=== PATIENT | female | born 1970 | race Hispanic/Latino ===

== ENCOUNTER → 2018-02-11 | Outpatient (CLI) | payer BC, OTHER | END | disposition home or self-care (01) | LOC: RAH 08:07 | PROVIDERS: ATTEND Internal Medicine | DX: E04.2 Nontoxic multinodular goiter (principal); K76.0 Fatty (change of) liver, not elsewhere classified; Z90.49 Acquired absence of other specified parts of digestive tract | CPT/HCPCS: 76536; 76700 ==

== ENCOUNTER → 2018-08-02 | Outpatient (CLI) | payer OTHER, BC | END | disposition home or self-care (01) | LOC: OIH 11:17 | PROVIDERS: ATTEND Internal Medicine | DX: J40 Bronchitis, not specified as acute or chronic (principal); J30.89 Other allergic rhinitis | CPT/HCPCS: 71046 ==

== ENCOUNTER → 2018-08-12 | Outpatient (CLI) | payer OTHER | END | disposition home or self-care (01) | LOC: RAH 10:53 | PROVIDERS: ATTEND Obstetrics & Gynecology | DX: R92.8 Other abnormal and inconclusive findings on diagnostic imaging of breast (principal) | CPT/HCPCS: 77066 ==

== ENCOUNTER → 2018-11-25 | Outpatient (CLI) | payer OTHER ==
[2018-11-25 17:36] LABS: HEMATOCRIT 41.4 % (36-48); MEAN CORPUSCULAR HEMOGLOBIN 30.6 pg (27.0-33.0); MEAN CORPUSCULAR HGB CONC 33.2 g/dL (32.0-36.0); MEAN CORPUSCULAR VOLUME 92.2 fL (79-99); NUCLEATED RED BLOOD CELLS 0.1 % (0.0-0.19); PLATELET COUNT (AUTO) 328 K/uL (130-400); RED BLOOD CELL COUNT(AUTO) 4.49 MIL/uL (4.00-5.50); RED CELL DISTRIBUTION WIDTH 12.6 % (11.0-15.5); WHITE BLOOD COUNT (AUTO) 11.9 K/uL (4.8-10.8)
[2018-11-25 17:49] LABS: ALBUMIN 3.8 g/dL (3.5-5.0); CREATININE 0.9 mg/dL (0.5-1.5); CRP QUANTITATIVE 9.6 mg/L (0.00-9.0); PHOSPHORUS 4.9 mg/dL (2.5-4.9); POTASSIUM 3.8 mmol/L (3.5-5.1)
[2018-11-25 18:58] LABS: ERYTHROCYTE SEDIMENTATION RATE 11 MM/HR (0-30)
[2018-11-25 20:01] LABS: BAND NEUTROPHILS % (MANUAL) 1 % (0-2); LYMPHOCYTES % (MANUAL) 18 % (22-44); MAN.DIFF COMMENT-IMPRESSION MANUAL DIFFERENTIAL; MONOCYTES % (MANUAL) 2 % (2-9); REACTIVE LYMPHOCYTES 1 % (0-0); SEGMENTED NEUTROPHILS % 78 % (40-70)
[2018-11-25 20:02] LABS: PLATELET MORPHOLOGY COMMENT ADEQUATE
[2018-11-29 14:12] LABS: ALPHA-1-ANTITRYPSIN 127 mg/dL (90-200)
== END | disposition home or self-care (01) ==
LOC: LAB 16:40
PROVIDERS: ATTEND Internal Medicine
DX: J45.909 Unspecified asthma, uncomplicated (principal); J30.89 Other allergic rhinitis; J40 Bronchitis, not specified as acute or chronic; R05 Cough; R06.02 Shortness of breath
CPT/HCPCS: 36415; 80069; 82103; 82104; 83520; 85025; 85651; 86038; 86140; 86215; 86235; 86255; 86606; 86612; 86635; 86698

== ENCOUNTER → 2018-11-29 | Outpatient (CLI) | payer OTHER ==
[~2018-11-29] MED LIST: IOHEXOL-350 50ML VIAL IV ONE
== END | disposition home or self-care (01) ==
LOC: RAH 13:22
PROVIDERS: ATTEND Internal Medicine
DX: J40 Bronchitis, not specified as acute or chronic (principal); K76.0 Fatty (change of) liver, not elsewhere classified
CPT/HCPCS: 71260; Q9967

== ENCOUNTER → 2018-12-21 | Outpatient (CLI) | payer OTHER ==
[2018-12-21 17:22] LABS: ALBUMIN 3.9 g/dL (3.5-5.0); BILIRUBIN,DIRECT 0.1 mg/dL (0.0-0.3); BILIRUBIN,TOTAL 0.2 mg/dL (0.2-1.0); TOTAL PROTEIN, SERUM 7.5 g/dL (6.0-8.3)
== END | disposition home or self-care (01) ==
LOC: LAB 16:06
PROVIDERS: ATTEND Internal Medicine
DX: J45.909 Unspecified asthma, uncomplicated (principal)
CPT/HCPCS: 36415; 80076

== ENCOUNTER → 2019-01-26 | Outpatient (CLI) | payer OTHER ==
[2019-01-26 13:44] LABS: BASOPHILS % (AUTO) 0.5 % (0.0-5.0); HEMATOCRIT 40.6 % (36-48); LYMPHOCYTES % (AUTO) 32.3 % (21.0-51.0); MEAN CORPUSCULAR HEMOGLOBIN 31.2 pg (27.0-33.0); MEAN CORPUSCULAR HGB CONC 34.2 g/dL (32.0-36.0); MEAN CORPUSCULAR VOLUME 91.2 fL (79-99); MONOCYTES % (AUTO) 5.1 % (3.0-13.0); NEUTROPHILS % (AUTO) 57.1 % (40.0-77.0); NUCLEATED RED BLOOD CELLS 0.1 % (0.0-0.19); PLATELET COUNT (AUTO) 337 K/uL (130-400); RED BLOOD CELL COUNT(AUTO) 4.45 MIL/uL (4.00-5.50); RED CELL DISTRIBUTION WIDTH 12.6 % (11.0-15.5); WHITE BLOOD COUNT (AUTO) 6.5 K/uL (4.8-10.8)
== END | disposition home or self-care (01) ==
LOC: LAB 13:11
PROVIDERS: ATTEND Internal Medicine Critical Care Medicine
DX: J45.50 Severe persistent asthma, uncomplicated (principal)
CPT/HCPCS: 36415; 82785; 85025

== ENCOUNTER → 2019-02-01 | Outpatient (CLI) | payer OTHER ==
[~2019-02-01] MED LIST changes: -IOHEXOL-350 50ML VIAL IV ONE; +IPRATROPIUM/ALBUTEROL SULFATE 3 ML SOLUTION IH ONE
== END | disposition home or self-care (01) ==
LOC: RAH 01-31 12:18
PROVIDERS: ATTEND Internal Medicine Cardiovascular Disease
DX: R06.02 Shortness of breath (principal)
CPT/HCPCS: 93306

== ENCOUNTER 2019-02-03 16:20 | Observation (INO) | payer OTHER ==
[~2019-02-03] VITALS: Ht 165.1 cm; Wt 67.9 kg
[2019-02-03] MEDS ORDERED: LEVOFLOXACIN 500 MG/D5W 100 ML 100 ML ONE (16:42)
[2019-02-03] MEDS ORDERED: METHYLPREDNISOLONE SOD SUCC 125MG/2ML VIAL ONE (16:42)
[2019-02-03] MEDS ORDERED: SODIUM CHLORIDE 0.9% 1000ML 1,000 ML IV ONE (16:42)
[2019-02-03 16:47] LABS: BASOPHILS % (AUTO) 0.9 % (0.0-5.0); EOSINOPHILS % (AUTO) 8.2 % (0.0-8.0); HEMATOCRIT 41.5 % (36-48); LYMPHOCYTES % (AUTO) 24.8 % (21.0-51.0); MEAN CORPUSCULAR HEMOGLOBIN 30.5 pg (27.0-33.0); MEAN CORPUSCULAR HGB CONC 33.7 g/dL (32.0-36.0); MEAN CORPUSCULAR VOLUME 90.5 fL (79-99); MONOCYTES % (AUTO) 7.2 % (3.0-13.0); NEUTROPHILS % (AUTO) 58.9 % (40.0-77.0); PLATELET COUNT (AUTO) 310 K/uL (130-400); RED BLOOD CELL COUNT(AUTO) 4.58 MIL/uL (4.00-5.50); RED CELL DISTRIBUTION WIDTH 13.1 % (11.0-15.5); WHITE BLOOD COUNT (AUTO) 6.6 K/uL (4.8-10.8)
[2019-02-03] MEDS ORDERED: IPRATROPIUM/ALBUTEROL SULFATE 3 ML SOLUTION IH ONE ×2 (16:48→19:54)
[2019-02-03 16:58] LABS: CREATININE 0.8 mg/dL (0.5-1.5); POTASSIUM 3.6 mmol/L (3.5-5.1)
[2019-02-03 17:00] LABS: INR 0.95 (0.85-1.15); PARTIAL THROMBOPLASTIN TIME 27.1 SEC (26.3-35.5)
[2019-02-03 17:02] LABS: ALBUMIN 3.9 g/dL (3.5-5.0); BILIRUBIN,DIRECT 0.1 mg/dL (0.0-0.3); BILIRUBIN,TOTAL 0.3 mg/dL (0.2-1.0); TOTAL PROTEIN, SERUM 7.5 g/dL (6.0-8.3)
[2019-02-03 17:31] LABS: B-TYPE NATRIURETIC PEPTIDE < 5 pg/mL (0-100)
[2019-02-03] MEDS ORDERED: GUAIFENESIN-CODEINE 5 ML SYRUP ONE ×2 (17:38→17:41)
[2019-02-03] MEDS ORDERED: MORPHINE SULFATE 4 MG/1ML SYG ONE (18:04)
[2019-02-03] MEDS ORDERED: ACETAMINOPHEN 325 MG TAB PO PRN (19:45)
[2019-02-03] MEDS ORDERED: OXYMETAZOLINE HCL SPRAY 15 ML BOTTLE EN PRN (19:45)
[2019-02-03] MEDS ORDERED: ONDANSETRON HCL 4 MG/2 ML VIAL IV PRN (19:45)
[2019-02-03] MEDS ORDERED: NITROGLYCERIN 0.4 MG SL TAB SL PRN (19:45)
[2019-02-03] MEDS ORDERED: SODIUM CHLORIDE 3% FOR INHALATION 4 ML/AMP VIAL.NEB IH ONE (20:13)
--- NOTE | 2019-02-03 20:25 | NUR ---
REPORT RECEIVED FROM GILDA MOTA
--- NOTE | 2019-02-03 20:50 | NUR ---
PT ARRIVED TO UNIT. PT IS ACCOMPANIED BY . STABLE. MINIMAL SOB DUE TO INCREASED COUGHING. STATES NO SECRETIONS. DOES HAS LARGE AMOUNT OF NASAL DRAINAGE. HAS NOT BEEN ABLE TO SLEEP DUE TO COUGH AND SECRETIONS. HAS BEEN SICK FOR ROUGHLY SEVEN MONTHS. HAS SEEN TWO [facility]. HAD EPISODE OF SOB WHILE AT WORK AND WENT TO THE ER. PT AA03. EVGENY. LAST BM 02/03. NO DISTRESS NOTED. AMBULATORY. IV PATENT.
[2019-02-03 20:52] VITALS: BP 129/83
[2019-02-03] MEDS ORDERED: FAMOTIDINE 20MG TAB 20 MG TAB PO SCH (21:00)
--- NOTE | 2019-02-03 21:00 | NUR ---
FRANNIE MELENDEZ IN TO SEE PT FOR HOSPITALIST SERVICES. NEW ORDER FOR BENADRYL 25MG PO X1DOSE TO AIDE IN SLEEPING. PT STATES SHE HAS BEEN UNABLE TO SLEEP WELL FOR WEEKS DUE TO CONDITION.
[2019-02-03] MEDS: SODIUM CHLORIDE 0.9% 1000ML 1,000 ML IV SCH (21:11)
[2019-02-03] MEDS: CLINDAMYCIN 600 MG/D5% WATER 50 ML IV SCH ×2 (21:12→21:36)
[2019-02-03] MEDS: METHYLPREDNISOLONE SOD SUCC 40MG/ML 1ML IVP SCH (21:21)
[2019-02-03] MEDS ORDERED: DIPHENHYDRAMINE HCL 25 MG CAPSULE PO SCH (21:30)
[2019-02-03 21:32] LABS: ALBUMIN 3.8 g/dL (3.5-5.0); BASOPHILS % (AUTO) 0.2 % (0.0-5.0); BILIRUBIN,TOTAL 0.4 mg/dL (0.2-1.0); CREATININE 0.7 mg/dL (0.5-1.5); EOSINOPHILS % (AUTO) 0.6 % (0.0-8.0); HEMATOCRIT 40.9 % (36-48); MEAN CORPUSCULAR HEMOGLOBIN 30.3 pg (27.0-33.0); MEAN CORPUSCULAR HGB CONC 33.6 g/dL (32.0-36.0); MEAN CORPUSCULAR VOLUME 90.1 fL (79-99); NEUTROPHILS % (AUTO) 87.2 % (40.0-77.0); PLATELET COUNT (AUTO) 306 K/uL (130-400); POTASSIUM 3.7 mmol/L (3.5-5.1); RED BLOOD CELL COUNT(AUTO) 4.53 MIL/uL (4.00-5.50); RED CELL DISTRIBUTION WIDTH 12.7 % (11.0-15.5); TOTAL PROTEIN, SERUM 7.5 g/dL (6.0-8.3); WHITE BLOOD COUNT (AUTO) 7.4 K/uL (4.8-10.8)
[2019-02-03] MEDS ORDERED: DIPHENHYDRAMINE HCL 25 MG CAPSULE ONE (21:33)
[2019-02-03] MEDS: IPRATROPIUM/ALBUTEROL SULFATE 3 ML SOLUTION IH SCH (21:58)
[2019-02-03] MEDS: ACETAMINOPHEN 325 MG TAB PO PRN (21:58)
[2019-02-03] MEDS: GUAIFENESIN-DM 200/20 MG 10 ML PO PRN (22:44)
[2019-02-03 23:35] VITALS: BP 115/70
[2019-02-04] MEDS: IPRATROPIUM/ALBUTEROL SULFATE 3 ML SOLUTION IH SCH ×3 (01:32→10:20)
[2019-02-04 04:26] VITALS: BP 101/68
[2019-02-04] MEDS: SODIUM CHLORIDE 0.9% 1000ML 1,000 ML IV SCH (05:41)
[2019-02-04] MEDS: METHYLPREDNISOLONE SOD SUCC 40MG/ML 1ML IVP SCH (06:05)
[2019-02-04] MEDS: GUAIFENESIN-DM 200/20 MG 10 ML PO PRN (06:23)
[2019-02-04 07:59] VITALS: BP 111/75
[2019-02-04 08:19] LABS: BASOPHILS % (AUTO) 0.2 % (0.0-5.0); EOSINOPHILS % (AUTO) 0.1 % (0.0-8.0); HEMATOCRIT 39.9 % (36-48); LYMPHOCYTES % (AUTO) 9.4 % (21.0-51.0); MEAN CORPUSCULAR HEMOGLOBIN 30.4 pg (27.0-33.0); MEAN CORPUSCULAR HGB CONC 33.4 g/dL (32.0-36.0); MEAN CORPUSCULAR VOLUME 91.1 fL (79-99); MONOCYTES % (AUTO) 1.3 % (3.0-13.0); PLATELET COUNT (AUTO) 291 K/uL (130-400); RED BLOOD CELL COUNT(AUTO) 4.38 MIL/uL (4.00-5.50)
[2019-02-04 08:31] LABS: ALBUMIN 3.7 g/dL (3.5-5.0); BILIRUBIN,TOTAL 0.2 mg/dL (0.2-1.0); CREATININE 0.9 mg/dL (0.5-1.5); POTASSIUM 4.2 mmol/L (3.5-5.1); TOTAL PROTEIN, SERUM 7.4 g/dL (6.0-8.3)
[2019-02-04] MEDS ORDERED: ENOXAPARIN SODIUM 30 MG/0.3 ML SQ SCH (09:00)
[2019-02-04] MEDS: ACETAMINOPHEN 325 MG TAB PO PRN (09:47)
[2019-02-04] MEDS ORDERED: FLUTICASONE PROPIONATE 50MCG/SPRAY 16 GM BOTTLE EN SCH (10:00)
[2019-02-04] MEDS ORDERED: Fluticasone Propionate EN (11:17)
[2019-02-04] MEDS ORDERED: PRED20TA3 PO (11:17)
[2019-02-04] MEDS ORDERED: LEVO750T46 PO (11:17)
[2019-02-04] MEDS ORDERED: LEVOFLOXACIN 500 MG/D5W 100 ML 100 ML IV SCH (16:00)
== END 2019-02-04 13:24 | disposition home or self-care (01) ==
LOC: EDH 16:20 → EDHIP 19:20 → INTOOBSV 19:20 → 2AH 20:45
PROVIDERS: ADMIT Internal Medicine; ATTEND Internal Medicine
DX: J01.40 Acute pansinusitis, unspecified (principal); Z80.6 Family history of leukemia; Z98.82 Breast implant status; Z82.5 Family history of asthma and other chronic lower respiratory diseases; Z79.899 Other long term (current) drug therapy; Z79.01 Long term (current) use of anticoagulants; Z90.49 Acquired absence of other specified parts of digestive tract
CPT/HCPCS: 36415 ×2; 70486; 71045; 80053 ×2; 82550; 83880; 84484; 85025 ×3; 85378; 85610; 85730; 87040 ×4; 87071; 87205; 87486; 87581; 87633; 87798; 87804 ×2; 93005; 94640 ×7; 94664; 96365; 96366; 96375; 96376; 99284; G0378 ×17; J1956; J2270; J2920 ×2; J2930; J3490; J7030 ×2; Q0163; 80048; 80076

== ENCOUNTER → 2019-02-11 | Outpatient (CLI) | payer OTHER ==
[~2019-02-11] MED LIST changes: +BUPR-47 PO; +Fluticasone Propionate EN; -IPRATROPIUM/ALBUTEROL SULFATE 3 ML SOLUTION IH ONE; +LEVO750T46 PO; +PRED20TA3 PO; +TIOT18CA3 IH
== END | disposition home or self-care (01) ==
LOC: RAH 09:06
PROVIDERS: ATTEND Internal Medicine
DX: J90 Pleural effusion, not elsewhere classified (principal); S22.32XD Fracture of one rib, left side, subsequent encounter for fracture with routine healing
CPT/HCPCS: 71046; 71100

== ENCOUNTER 2019-03-15 06:31 | Day surgery (SDC) | payer OTHER ==
[2019-03-14 09:36] VITALS: BP 129/94
[2019-03-14 09:38] LABS: BASOPHILS % (AUTO) 0.5 % (0.0-5.0); EOSINOPHILS % (AUTO) 2.4 % (0.0-8.0); HEMATOCRIT 43.8 % (36-48); LYMPHOCYTES % (AUTO) 34.7 % (21.0-51.0); MEAN CORPUSCULAR HEMOGLOBIN 30.5 pg (27.0-33.0); MEAN CORPUSCULAR HGB CONC 33.5 g/dL (32.0-36.0); MEAN CORPUSCULAR VOLUME 91.1 fL (79-99); MONOCYTES % (AUTO) 5.5 % (3.0-13.0); NEUTROPHILS % (AUTO) 56.9 % (40.0-77.0); PLATELET COUNT (AUTO) 327 K/uL (130-400); RED BLOOD CELL COUNT(AUTO) 4.81 MIL/uL (4.00-5.50); RED CELL DISTRIBUTION WIDTH 13.1 % (11.0-15.5); WHITE BLOOD COUNT (AUTO) 7.8 K/uL (4.8-10.8)
[2019-03-14 09:51] LABS: INR 0.96 (0.85-1.15); PARTIAL THROMBOPLASTIN TIME 27.1 SEC (26.3-35.5); PROTHROMBIN TIME 10.1 SEC (9.6-11.6)
[2019-03-14 11:31] LABS: CREATININE 0.8 mg/dL (0.5-1.5); POTASSIUM 4.1 mmol/L (3.5-5.1)
[2019-03-15] VITALS (15 sets, daily range): BP systolic 122–158; BP diastolic 75–100
[~2019-03-15] VITALS: Ht 165.1 cm; Wt 66.4 kg
[~2019-03-15 06:31] MED LIST changes: -Fluticasone Propionate EN; -LEVO750T46 PO; -PRED20TA3 PO
[2019-03-15] MEDS ORDERED: LACTATED RINGERS 1000ML 1,000 ML IV ONE (06:49)
[2019-03-15] MEDS ORDERED: LIDOCAINE PF 2% 5ML ABBOJECT ONE (06:52)
[2019-03-15] MEDS ORDERED: MIDAZOLAM HCL 1 MG/ML 2ML VIAL ONE (06:52)
[2019-03-15] MEDS ORDERED: DEXAMETHASONE SOD PHOSPHATE 10MG/ML 1ML VIAL ONE (06:52)
[2019-03-15] MEDS ORDERED: ONDANSETRON HCL 4 MG/2 ML VIAL ONE ×2 (06:52→07:15)
[2019-03-15] MEDS ORDERED: PROPOFOL 10 MG/ML 20ML VIAL IV ONE ×2 (06:52→08:45)
[2019-03-15] MEDS ORDERED: GLYCOPYRROLATE 1 MG/5 ML SYRINGE ONE (06:52)
[2019-03-15] MEDS ORDERED: SUCCINYLCHOLINE 200MG/10ML SYR ONE (06:52)
[2019-03-15] MEDS ORDERED: FENTANYL CITRATE PF 50 MCG/1 ML 2ML VIAL ONE ×2 (06:53→08:17)
[2019-03-15] MEDS ORDERED: ROCURONIUM 10MG/1ML SYR 10 MG/ML ML ONE (06:53)
[2019-03-15] MEDS ORDERED: NEOSTIGMINE 5MG/5ML SYR IV ONE (06:53)
[2019-03-15] MEDS ORDERED: BACITRACIN 28.4 GM OINT TP ONE (06:57)
[2019-03-15] MEDS ORDERED: EPINEPHRINE 1 MG/ML 30ML VIAL IJ ONE (06:58)
[2019-03-15] MEDS ORDERED: LIDOCAINE 1%-EPI 1:100,000 20 ML VIAL IJ ONE (06:58)
[2019-03-15] MEDS ORDERED: OXYMETAZOLINE HCL SPRAY 15 ML BOTTLE ONE (07:23)
[2019-03-15] MEDS ORDERED: METHYLPREDNISOLONE SOD SUCC 40MG/ML 1ML ONE ×2 (07:55→07:58)
[2019-03-15] MEDS ORDERED: MEPERIDINE-PF 25 MG/ML SYG ONE ×2 (09:11→09:29)
--- NOTE | 2019-03-15 10:10 | NUR ---
Pt arrived from PACU, report provided from [facility] via phone prior to pt's arrival. Upon pt's arrival to day pt, dressing changed. Nose draining moderate amounts of bright red blood. Dressing changed, 2 puffs of Afrin nasal spray applied into each nostril. Pt reported having a dry, uncomfortable throat. Pt provided with water and mouth swabs for relief.
[2019-03-15] MEDS ORDERED: ACETAMINOPHEN-CODEINE 300/30MG TAB ONE (10:28)
--- NOTE | 2019-03-15 11:20 | NUR ---
Pt discharged home, tolerating small amounts of clear fluids, moving around well with stand-by assistance. Denies any severe pain, nausea or dizziness. Discharge instructions provided, pt and spouse verbalized understanding. Pt reminded to watch for signs of excessive bleeding and if bleeding increases to call MD. Pt and family report no further questions at this time. Pt provided with tape and gauze to replace dressing around nose. PT sent home with Afrin for home use. Pt reports already having pain medication (Tylenol with codeine) filled. Dressing to nose replaced just prior to discharge.
== END 2019-03-15 11:20 | disposition home or self-care (01) ==
LOC: DAH 06:31
PROVIDERS: ATTEND Otolaryngology Plastic Surgery within the Head & Neck
DX: J34.2 Deviated nasal septum (principal); J34.3 Hypertrophy of nasal turbinates; J32.4 Chronic pansinusitis; J34.89 Other specified disorders of nose and nasal sinuses; R05 Cough; Z79.899 Other long term (current) drug therapy; Z82.5 Family history of asthma and other chronic lower respiratory diseases
CPT/HCPCS: 36415; 80048; 85025; 85610; 85730; 87070; 87076; 87205; 88304; 88305; 88311; J0171; J0330; J1100; J2001; J2175; J2250; J2405; J2704; J2710; J2920; J3010; J3490; J7120

== ENCOUNTER → 2019-05-06 | Outpatient (CLI) | payer OTHER | END | disposition home or self-care (01) | LOC: LAB 16:25 | PROVIDERS: ATTEND Otolaryngology Plastic Surgery within the Head & Neck | DX: R05 Cough (principal) | CPT/HCPCS: 36415; 82565; 84520 ==

== ENCOUNTER → 2019-05-11 | Outpatient (CLI) | payer OTHER ==
[~2019-05-11] MED LIST changes: +IOHEXOL-350 50ML VIAL IV ONE
== END | disposition home or self-care (01) ==
LOC: RAH 14:49
PROVIDERS: ATTEND Otolaryngology Plastic Surgery within the Head & Neck
DX: R91.8 Other nonspecific abnormal finding of lung field (principal)
CPT/HCPCS: 71046; 71270; Q9967

== ENCOUNTER → 2019-06-06 | Outpatient (CLI) | payer OTHER ==
[~2019-06-06] MED LIST changes: -IOHEXOL-350 50ML VIAL IV ONE
== END | disposition home or self-care (01) ==
LOC: LAB 16:26
PROVIDERS: ATTEND Internal Medicine Critical Care Medicine
DX: J45.50 Severe persistent asthma, uncomplicated (principal)
CPT/HCPCS: 36415; 82784

== ENCOUNTER 2019-06-08 14:03 | Emergency (ER) | payer OTHER ==
[~2019-06-08] VITALS: Ht 160 cm; Wt 63.5 kg
[2019-06-08] MEDS ORDERED: IPRATROPIUM/ALBUTEROL SULFATE 3 ML SOLUTION IH ONE ×2 (14:24→15:50)
[2019-06-08] MEDS ORDERED: METHYLPREDNISOLONE SOD SUCC 125MG/2ML VIAL ONE (14:33)
[2019-06-08 14:41] LABS: BASOPHILS % (AUTO) 0.6 % (0.0-5.0); EOSINOPHILS % (AUTO) 0.2 % (0.0-8.0); HEMATOCRIT 43.6 % (36-48); MEAN CORPUSCULAR HEMOGLOBIN 30.4 pg (27.0-33.0); MEAN CORPUSCULAR HGB CONC 34.7 g/dL (32.0-36.0); MEAN CORPUSCULAR VOLUME 87.7 fL (79-99); MONOCYTES % (AUTO) 4.3 % (3.0-13.0); NEUTROPHILS % (AUTO) 70.9 % (40.0-77.0); NUCLEATED RED BLOOD CELLS 0.1 % (0.0-0.19); PLATELET COUNT (AUTO) 369 K/uL (130-400); RED BLOOD CELL COUNT(AUTO) 4.97 MIL/uL (4.00-5.50); RED CELL DISTRIBUTION WIDTH 13.5 % (11.0-15.5); WHITE BLOOD COUNT (AUTO) 9.4 K/uL (4.8-10.8)
[2019-06-08 14:52] LABS: CREATININE 0.9 mg/dL (0.5-1.5)
[2019-06-08 14:58] LABS: ALBUMIN 3.9 g/dL (3.5-5.0); BILIRUBIN,TOTAL 0.3 mg/dL (0.2-1.0); TOTAL PROTEIN, SERUM 7.9 g/dL (6.0-8.3)
[2019-06-08] MEDS ORDERED: TERBUTALINE SULFATE VIAL 1MG/ML SQ SCH (16:45)
== END 2019-06-08 17:21 | disposition home or self-care (01) ==
LOC: EDH 14:03
DX: J45.901 Unspecified asthma with (acute) exacerbation (principal); Z90.49 Acquired absence of other specified parts of digestive tract; Z98.890 Other specified postprocedural states; Z87.891 Personal history of nicotine dependence; Z79.899 Other long term (current) drug therapy
CPT/HCPCS: 36415; 71045; 80053; 82550; 83880; 84484; 85025; 93005; 94640 ×2; 96372; 96374; 99285; J2930; J3105

== ENCOUNTER → 2019-07-29 | Outpatient (CLI) | payer OTHER ==
[2019-07-29 09:19] LABS: BASOPHILS % (AUTO) 0.5 % (0.0-5.0); EOSINOPHILS % (AUTO) 0.4 % (0.0-8.0); HEMATOCRIT 39.1 % (36-48); LYMPHOCYTES % (AUTO) 23.8 % (21.0-51.0); MEAN CORPUSCULAR HEMOGLOBIN 30.4 pg (27.0-33.0); MEAN CORPUSCULAR HGB CONC 33.5 g/dL (32.0-36.0); MEAN CORPUSCULAR VOLUME 90.8 fL (79-99); MONOCYTES % (AUTO) 7.3 % (3.0-13.0); NUCLEATED RED BLOOD CELLS 0.1 % (0.0-0.19); PLATELET COUNT (AUTO) 389 K/uL (130-400); RED BLOOD CELL COUNT(AUTO) 4.31 MIL/uL (4.00-5.50); RED CELL DISTRIBUTION WIDTH 14.1 % (11.0-15.5); WHITE BLOOD COUNT (AUTO) 10.5 K/uL (4.8-10.8)
[2019-07-29 09:28] LABS: HEMOGLOBIN A1C 5.8 % (4.0-6.0)
[2019-07-29 09:50] LABS: ALBUMIN 3.8 g/dL (3.5-5.0); BILIRUBIN,TOTAL 0.5 mg/dL (0.2-1.0); CREATININE 0.9 mg/dL (0.5-1.5); POTASSIUM 4.2 mmol/L (3.5-5.1); THYROID STIMULATING HORMONE 0.81 uIU/mL (0.36-3.74); TOTAL PROTEIN, SERUM 7.8 g/dL (6.0-8.3)
== END | disposition home or self-care (01) ==
LOC: RAH 08:53
PROVIDERS: ATTEND Obstetrics & Gynecology
DX: Z12.31 Encounter for screening mammogram for malignant neoplasm of breast (principal); J32.8 Other chronic sinusitis; J30.9 Allergic rhinitis, unspecified; E55.9 Vitamin D deficiency, unspecified; Z98.890 Other specified postprocedural states
CPT/HCPCS: 36415; 70486; 77067; 80053; 80061; 83036; 84439; 84443; 84481; 85025

== ENCOUNTER 2019-08-15 05:49 | Day surgery (SDC) | payer OTHER ==
[~2019-08-15] VITALS: Ht 165.1 cm; Wt 63.5 kg
[2019-08-15] MEDS ORDERED: SODIUM CHLORIDE 0.9% 1000ML 1,000 ML IV ONE (06:25)
[2019-08-15] MEDS ORDERED: FLUT16H NASAL (06:51)
[2019-08-15] MEDS ORDERED: OMEP40CA13 PO (06:51)
[2019-08-15] MEDS ORDERED: ALBU90AE IH (06:51)
[2019-08-15] MEDS ORDERED: BUDE10.2 IH (06:51)
[2019-08-15] MEDS ORDERED: MIDAZOLAM HCL 1 MG/ML 2ML VIAL ONE (06:51)
[2019-08-15] MEDS ORDERED: LORA-575 PO (06:51)
[2019-08-15] MEDS ORDERED: PROPOFOL 10 MG/ML 20ML VIAL IV ONE ×2 (06:51→07:27)
[2019-08-15] MEDS ORDERED: GABA300S PO (06:51)
[2019-08-15] MEDS ORDERED: LIDOCAINE HCL 1% 20 ML VIAL ONE (06:51)
[2019-08-15] MEDS ORDERED: ATOR20TA65 PO (06:51)
[2019-08-15] MEDS ORDERED: PRED20TA3 PO (06:51)
[2019-08-15] MEDS ORDERED: MONT10TA24 PO (06:51)
[2019-08-15] MEDS ORDERED: FENTANYL CITRATE PF 50 MCG/1 ML 2ML VIAL ONE (06:53)
[2019-08-15 07:38] VITALS: BP 102/75
[2019-08-15 07:40] VITALS: BP 107/77
[2019-08-15 07:45] VITALS: BP 98/70
[2019-08-15 07:50] VITALS: BP 100/71
== END 2019-08-15 08:15 | disposition home or self-care (01) ==
LOC: ENDO 05:49 → DAH 05:49 → ENDO 08:15
PROVIDERS: ATTEND Internal Medicine Gastroenterology
DX: Z09 Encounter for follow-up examination after completed treatment for conditions other than malignant neoplasm (principal); K29.70 Gastritis, unspecified, without bleeding; E78.5 Hyperlipidemia, unspecified; J45.909 Unspecified asthma, uncomplicated; K21.9 Gastro-esophageal reflux disease without esophagitis; K31.89 Other diseases of stomach and duodenum; Z79.899 Other long term (current) drug therapy; Z90.49 Acquired absence of other specified parts of digestive tract
CPT/HCPCS: 43239; 45378; A4215; A4221; A4222; A4223; A4606; A4620; A4663; J2250; J2704 ×2; J3010; J7030

== ENCOUNTER → 2020-02-07 | Outpatient (CLI) | payer BC, OTHER | END | disposition home or self-care (01) | LOC: RAH 08:27 | PROVIDERS: ATTEND Internal Medicine Critical Care Medicine | DX: J32.4 Chronic pansinusitis (principal) ==

== ENCOUNTER → 2020-04-26 | Outpatient (CLI) | payer BC, OTHER ==
[~2020-04-26] MED LIST changes: +ALBU90AE IH; +ATOR20TA65 PO; +BUDE10.2 IH; +FLUT16H NASAL; +GABA300S PO; +LORA-575 PO; +MONT10TA26 PO; +OMEP40CA13 PO; +PRED20TA3 PO
== END | disposition home or self-care (01) ==
LOC: RAH 08:19
PROVIDERS: ATTEND Internal Medicine
DX: Z01.811 Encounter for preprocedural respiratory examination (principal); R05 Cough
CPT/HCPCS: 71046

== ENCOUNTER → 2020-05-02 | Outpatient (CLI) | payer BC, OTHER ==
[2020-05-02 14:03] LABS: BASOPHILS % (AUTO) 0.2 % (0.0-5.0); EOSINOPHILS % (AUTO) 3.6 % (0.0-8.0); HEMATOCRIT 40.8 % (36-48); LYMPHOCYTES % (AUTO) 41.6 % (21.0-51.0); MEAN CORPUSCULAR HEMOGLOBIN 30.6 pg (27.0-33.0); MEAN CORPUSCULAR HGB CONC 33.3 g/dL (32.0-36.0); MEAN CORPUSCULAR VOLUME 91.9 fL (79-99); MONOCYTES % (AUTO) 7.5 % (3.0-13.0); PLATELET COUNT (AUTO) 307 K/uL (130-400); RED BLOOD CELL COUNT(AUTO) 4.44 MIL/uL (4.00-5.50); RED CELL DISTRIBUTION WIDTH 12.8 % (11.0-15.5); WHITE BLOOD COUNT (AUTO) 8.4 K/uL (4.8-10.8)
[2020-05-02 14:22] LABS: ALBUMIN 3.6 g/dL (3.5-5.0); BILIRUBIN,DIRECT 0.1 mg/dL (0.0-0.3); BILIRUBIN,TOTAL 0.4 mg/dL (0.2-1.0); POTASSIUM 3.8 mmol/L (3.5-5.1); TOTAL PROTEIN, SERUM 7.1 g/dL (6.0-8.3)
[2020-05-02 14:23] LABS: INR 0.92 (0.85-1.15); PARTIAL THROMBOPLASTIN TIME 24.5 SEC (26.3-35.5)
== END | disposition home or self-care (01) ==
LOC: LAB 04-27 06:59
PROVIDERS: ATTEND Internal Medicine
DX: Z01.818 Encounter for other preprocedural examination (principal); E78.2 Mixed hyperlipidemia
CPT/HCPCS: 36415; 80053; 80076; 85025; 85610; 85730

== ENCOUNTER → 2020-05-07 | Outpatient (CLI) | payer BC, OTHER | END | disposition home or self-care (01) | LOC: RAH 09:13 | PROVIDERS: ATTEND Otolaryngology | DX: J32.4 Chronic pansinusitis (principal); J32.9 Chronic sinusitis, unspecified; J34.2 Deviated nasal septum | CPT/HCPCS: 70486 ==

== ENCOUNTER → 2020-08-01 | Outpatient (CLI) | payer BC, OTHER ==
[~2020-08-01] MED LIST changes: -MONT10TA26 PO; +MONT10TA96 PO
== END | disposition home or self-care (01) ==
LOC: RAH 08:21
PROVIDERS: ATTEND Internal Medicine
DX: Z12.31 Encounter for screening mammogram for malignant neoplasm of breast (principal); N64.89 Other specified disorders of breast
CPT/HCPCS: 77067

== ENCOUNTER → 2020-08-14 | Outpatient (CLI) | payer BC, OTHER | END | disposition home or self-care (01) | LOC: RAH 09:34 | PROVIDERS: ATTEND Internal Medicine | DX: J32.9 Chronic sinusitis, unspecified (principal); M47.814 Spondylosis without myelopathy or radiculopathy, thoracic region | CPT/HCPCS: 70486; 71046; 74021 ==

== ENCOUNTER → 2020-08-29 | Outpatient (CLI) | payer BC, OTHER ==
[2020-08-29 09:19] LABS: BASOPHILS % (AUTO) 0.8 % (0.0-5.0); HEMATOCRIT 45.4 % (36-48); LYMPHOCYTES % (AUTO) 43.5 % (21.0-51.0); MEAN CORPUSCULAR HEMOGLOBIN 29.2 pg (27.0-33.0); MEAN CORPUSCULAR HGB CONC 31.9 g/dL (32.0-36.0); MEAN CORPUSCULAR VOLUME 91.3 fL (79-99); MONOCYTES % (AUTO) 6.8 % (3.0-13.0); NEUTROPHILS % (AUTO) 42.6 % (40.0-77.0); PLATELET COUNT (AUTO) 428 K/uL (130-400); RED BLOOD CELL COUNT(AUTO) 4.97 MIL/uL (4.00-5.50); RED CELL DISTRIBUTION WIDTH 13.4 % (11.0-15.5); WHITE BLOOD COUNT (AUTO) 6.4 K/uL (4.8-10.8)
[2020-08-29 09:36] LABS: ALBUMIN 4.1 g/dL (3.5-5.0); BILIRUBIN,TOTAL 0.3 mg/dL (0.2-1.0); CREATININE 0.9 mg/dL (0.5-1.5); TOTAL PROTEIN, SERUM 8.5 g/dL (6.0-8.3)
[2020-08-29 10:34] LABS: ERYTHROCYTE SEDIMENTATION RATE 3 MM/HR (0-30)
== END | disposition home or self-care (01) ==
LOC: LAB 08:18
PROVIDERS: ATTEND Internal Medicine
DX: B44.9 Aspergillosis, unspecified (principal)
CPT/HCPCS: 36415; 80053; 80061; 82785; 85025; 85651; 86606

== ENCOUNTER → 2020-09-14 | Outpatient (CLI) | payer BC, OTHER ==
[~2020-09-14] MED LIST changes: -BUPR-47 PO; +BUPR-48 PO
[2020-09-14 10:22] LABS: BASOPHILS % (AUTO) 0.8 % (0.0-5.0); EOSINOPHILS % (AUTO) 10.5 % (0.0-8.0); HEMATOCRIT 43.6 % (36-48); LYMPHOCYTES % (AUTO) 35.6 % (21.0-51.0); MEAN CORPUSCULAR HEMOGLOBIN 28.5 pg (27.0-33.0); MEAN CORPUSCULAR HGB CONC 31.7 g/dL (32.0-36.0); MEAN CORPUSCULAR VOLUME 89.9 fL (79-99); MONOCYTES % (AUTO) 5.9 % (3.0-13.0); NEUTROPHILS % (AUTO) 46.8 % (40.0-77.0); PLATELET COUNT (AUTO) 363 K/uL (130-400); RED BLOOD CELL COUNT(AUTO) 4.85 MIL/uL (4.00-5.50); RED CELL DISTRIBUTION WIDTH 13.2 % (11.0-15.5); WHITE BLOOD COUNT (AUTO) 5.3 K/uL (4.8-10.8)
[2020-09-14 10:42] LABS: ALBUMIN 3.9 g/dL (3.5-5.0); BILIRUBIN,TOTAL 0.2 mg/dL (0.2-1.0); CREATININE 0.9 mg/dL (0.5-1.5); CRP QUANTITATIVE 4.1 mg/L (0.00-9.0); POTASSIUM 3.8 mmol/L (3.5-5.1); TOTAL PROTEIN, SERUM 7.8 g/dL (6.0-8.3)
[2020-09-14 11:26] LABS: ERYTHROCYTE SEDIMENTATION RATE 122 MM/HR (0-30)
== END | disposition home or self-care (01) ==
LOC: RAH 09:58
PROVIDERS: ATTEND Internal Medicine
DX: M19.042 Primary osteoarthritis, left hand (principal); M19.041 Primary osteoarthritis, right hand; M19.072 Primary osteoarthritis, left ankle and foot; M19.071 Primary osteoarthritis, right ankle and foot; M06.4 Inflammatory polyarthropathy
CPT/HCPCS: 73630

== ENCOUNTER → 2020-11-15 | Outpatient (CLI) | payer BC, OTHER ==
[~2020-11-15] MED LIST changes: -BUPR-48 PO; +BUPR-49 PO; +MONT10TA32 PO; -MONT10TA96 PO
== END | disposition home or self-care (01) ==
LOC: RAH 15:39
PROVIDERS: ATTEND Internal Medicine
DX: J32.4 Chronic pansinusitis (principal); J34.2 Deviated nasal septum
CPT/HCPCS: 70486

== ENCOUNTER → 2020-11-30 | Outpatient (CLI) | payer BC, OTHER ==
[2020-11-30 11:16] LABS: BASOPHILS % (AUTO) 0.7 % (0.0-5.0); EOSINOPHILS % (AUTO) 9.8 % (0.0-8.0); LYMPHOCYTES % (AUTO) 42.9 % (21.0-51.0); MEAN CORPUSCULAR HEMOGLOBIN 29.8 pg (27.0-33.0); MEAN CORPUSCULAR HGB CONC 33.3 g/dL (32.0-36.0); MEAN CORPUSCULAR VOLUME 89.5 fL (79-99); NEUTROPHILS % (AUTO) 36.5 % (40.0-77.0); PLATELET COUNT (AUTO) 381 K/uL (130-400); RED BLOOD CELL COUNT(AUTO) 5.03 MIL/uL (4.00-5.50); RED CELL DISTRIBUTION WIDTH 13.1 % (11.0-15.5); WHITE BLOOD COUNT (AUTO) 7.3 K/uL (4.8-10.8)
[2020-11-30 11:27] LABS: ALANINE AMINOTRANSFERASE 38 U/L (12-78); ALBUMIN 4.5 g/dL (3.5-5.0); ASPARTATE AMINOTRANSFERASE 18 U/L (10-37); BILIRUBIN,TOTAL 0.4 mg/dL (0.2-1.0); CARBON DIOXIDE 28 mmol/L (21-32); CHLORIDE 101 mmol/L (101-111); CREATININE 0.9 mg/dL (0.5-1.5); CRP QUANTITATIVE < 2.00 mg/L (0.00-9.0); GLOMERULAR FILTR. RATE CALC 70 mL/min (>60); GLUCOSE,RANDOM 102 mg/dL (70-105); POTASSIUM 3.9 mmol/L (3.5-5.1); SODIUM SERUM 138 mmol/L (136-145); TOTAL PROTEIN, SERUM 8.6 g/dL (6.0-8.3); UREA NITROGEN, BLOOD 15 mg/dL (7-18)
[2020-11-30 12:29] LABS: ERYTHROCYTE SEDIMENTATION RATE 8 MM/HR (0-30)
== END | disposition home or self-care (01) ==
LOC: LAB 11-29 11:35
PROVIDERS: ATTEND Internal Medicine
DX: M06.4 Inflammatory polyarthropathy (principal)
CPT/HCPCS: 36415; 80053; 85025; 85651; 86140; 86255

== ENCOUNTER → 2021-01-08 | Outpatient (CLI) | payer BC ==
[2021-01-08 09:39] LABS: BASOPHILS % (AUTO) 1.4 % (0.0-5.0); EOSINOPHILS % (AUTO) 18.9 % (0.0-8.0); HEMATOCRIT 40.2 % (36-48); LYMPHOCYTES % (AUTO) 34.6 % (21.0-51.0); MEAN CORPUSCULAR HEMOGLOBIN 29.5 pg (27.0-33.0); MEAN CORPUSCULAR HGB CONC 32.1 g/dL (32.0-36.0); MEAN CORPUSCULAR VOLUME 91.8 fL (79-99); MONOCYTES % (AUTO) 7.1 % (3.0-13.0); NEUTROPHILS % (AUTO) 37.8 % (40.0-77.0); PLATELET COUNT (AUTO) 338 K/uL (130-400); RED BLOOD CELL COUNT(AUTO) 4.38 MIL/uL (4.00-5.50); RED CELL DISTRIBUTION WIDTH 12.4 % (11.0-15.5); WHITE BLOOD COUNT (AUTO) 6.5 K/uL (4.8-10.8)
[2021-01-08 10:33] LABS: ALANINE AMINOTRANSFERASE 40 U/L (12-78); ASPARTATE AMINOTRANSFERASE 26 U/L (10-37); BILIRUBIN,TOTAL 0.3 mg/dL (0.2-1.0); CARBON DIOXIDE 28 mmol/L (21-32); CHLORIDE 103 mmol/L (101-111); CREATININE 0.9 mg/dL (0.5-1.5); GLOMERULAR FILTR. RATE CALC 70 mL/min (>60); GLUCOSE,RANDOM 101 mg/dL (70-105); POTASSIUM 4.5 mmol/L (3.5-5.1); SODIUM SERUM 141 mmol/L (136-145); TOTAL PROTEIN, SERUM 7.8 g/dL (6.0-8.3); UREA NITROGEN, BLOOD 19 mg/dL (7-18)
[2021-01-08 10:42] LABS: ERYTHROCYTE SEDIMENTATION RATE 11 MM/HR (0-30)
[2021-01-08 11:15] LABS: CRP QUANTITATIVE < 2.00 mg/L (0.00-9.0)
== END | disposition home or self-care (01) ==
LOC: LAB 09:28
PROVIDERS: ATTEND Internal Medicine
DX: M06.4 Inflammatory polyarthropathy (principal)
CPT/HCPCS: 36415; 80053; 85025; 85651; 86140

== ENCOUNTER → 2021-02-06 | Outpatient (CLI) | payer BC ==
[~2021-02-06] MED LIST changes: -OMEP40CA13 PO; +OMEP40CA21 PO
[2021-02-06 15:20] LABS: EOSINOPHILS % (AUTO) 27.3 % (0.0-8.0); HEMATOCRIT 40.1 % (36-48); MEAN CORPUSCULAR HEMOGLOBIN 29.7 pg (27.0-33.0); MEAN CORPUSCULAR HGB CONC 32.7 g/dL (32.0-36.0); MEAN CORPUSCULAR VOLUME 90.9 fL (79-99); MONOCYTES % (AUTO) 7.2 % (3.0-13.0); NEUTROPHILS % (AUTO) 32.3 % (40.0-77.0); PLATELET COUNT (AUTO) 292 K/uL (130-400); RED BLOOD CELL COUNT(AUTO) 4.41 MIL/uL (4.00-5.50); RED CELL DISTRIBUTION WIDTH 12.5 % (11.0-15.5); WHITE BLOOD COUNT (AUTO) 5.8 K/uL (4.8-10.8)
[2021-02-06 15:35] LABS: ALANINE AMINOTRANSFERASE 23 U/L (12-78); ALBUMIN 3.9 g/dL (3.5-5.0); ASPARTATE AMINOTRANSFERASE 13 U/L (10-37); BILIRUBIN,TOTAL 0.2 mg/dL (0.2-1.0); CARBON DIOXIDE 29 mmol/L (21-32); CHLORIDE 104 mmol/L (101-111); CREATININE 0.8 mg/dL (0.5-1.5); GLOMERULAR FILTR. RATE CALC 80 mL/min (>60); GLUCOSE,RANDOM 120 mg/dL (70-105); POTASSIUM 4.1 mmol/L (3.5-5.1); SODIUM SERUM 142 mmol/L (136-145); TOTAL PROTEIN, SERUM 7.6 g/dL (6.0-8.3); UREA NITROGEN, BLOOD 19 mg/dL (7-18)
[2021-02-06 15:36] LABS: CRP QUANTITATIVE < 2.00 mg/L (0.00-9.0)
[2021-02-06 16:31] LABS: ERYTHROCYTE SEDIMENTATION RATE 10 MM/HR (0-30)
[2021-02-08 14:11] LABS: HEPATITIS Bs ANTIGEN SCREEN P Negative (Negative)
== END | disposition home or self-care (01) ==
LOC: LAB 14:38
PROVIDERS: ATTEND Internal Medicine
DX: M06.4 Inflammatory polyarthropathy (principal)
CPT/HCPCS: 36415; 80053; 85025; 85651; 86140; 86704; 86706; 87340

== ENCOUNTER → 2021-03-13 | Outpatient (CLI) | payer BC | END | disposition home or self-care (01) | LOC: LAB 11:28 | PROVIDERS: ATTEND Internal Medicine Cardiovascular Disease | DX: Z20.822 Contact with and (suspected) exposure to COVID-19 (principal) | CPT/HCPCS: 87635; 87804 ×2; C9803 ==

== ENCOUNTER → 2021-06-17 | Outpatient (CLI) | payer BC, OTHER ==
[~2021-06-17] MED LIST changes: +MONT-39 PO; -MONT10TA32 PO
== END | disposition home or self-care (01) ==
LOC: RAH 13:03
PROVIDERS: ATTEND Otolaryngology Plastic Surgery within the Head & Neck
DX: J32.4 Chronic pansinusitis (principal); Z20.822 Contact with and (suspected) exposure to COVID-19
CPT/HCPCS: 70486; 87635; C9803

== ENCOUNTER → 2021-09-19 | Outpatient (CLI) | payer BC, OTHER | END | disposition home or self-care (01) | LOC: RAH 10:15 | PROVIDERS: ATTEND Internal Medicine | DX: Z12.31 Encounter for screening mammogram for malignant neoplasm of breast (principal); Z98.82 Breast implant status | CPT/HCPCS: 77067 ==

== ENCOUNTER → 2021-10-01 | Outpatient (CLI) | payer BC, OTHER ==
[2021-10-01 15:28] LABS: BASOPHILS % (AUTO) 0.2 % (0.0-5.0); HEMATOCRIT 41.4 % (36-48); LYMPHOCYTES % (AUTO) 21.3 % (21.0-51.0); MEAN CORPUSCULAR HEMOGLOBIN 28.3 pg (27.0-33.0); MEAN CORPUSCULAR HGB CONC 32.6 g/dL (32.0-36.0); MEAN CORPUSCULAR VOLUME 86.8 fL (79-99); MONOCYTES % (AUTO) 6.2 % (3.0-13.0); NEUTROPHILS % (AUTO) 71.7 % (40.0-77.0); PLATELET COUNT (AUTO) 355 K/uL (130-400); RED BLOOD CELL COUNT(AUTO) 4.77 MIL/uL (4.00-5.50); RED CELL DISTRIBUTION WIDTH 13.6 % (11.0-15.5); WHITE BLOOD COUNT (AUTO) 8.6 K/uL (4.8-10.8)
[2021-10-01 15:48] LABS: ALANINE AMINOTRANSFERASE 26 U/L (12-78); ASPARTATE AMINOTRANSFERASE 11 U/L (10-37); BILIRUBIN,TOTAL 0.2 mg/dL (0.2-1.0); CARBON DIOXIDE 27 mmol/L (21-32); CHLORIDE 101 mmol/L (101-111); CREATININE 0.8 mg/dL (0.5-1.5); GLOMERULAR FILTR. RATE CALC 80 mL/min (>60); GLUCOSE,RANDOM 112 mg/dL (70-105); POTASSIUM 4.1 mmol/L (3.5-5.1); SODIUM SERUM 137 mmol/L (136-145); TOTAL PROTEIN, SERUM 7.6 g/dL (6.0-8.3); UREA NITROGEN, BLOOD 19 mg/dL (7-18)
[2021-10-01 15:53] LABS: CRP QUANTITATIVE < 2.00 mg/L (0.00-9.0)
[2021-10-01 16:33] LABS: ERYTHROCYTE SEDIMENTATION RATE 16 MM/HR (0-30)
== END | disposition home or self-care (01) ==
LOC: RAH 14:57
PROVIDERS: ATTEND Internal Medicine
DX: M19.90 Unspecified osteoarthritis, unspecified site (principal); Z79.899 Other long term (current) drug therapy
CPT/HCPCS: 36415; 73030; 80053; 85025; 85651; 86140

== ENCOUNTER 2021-12-09 09:08 | Emergency (ER) | payer BC, OTHER ==
[~2021-12-09] VITALS: Ht 165.1 cm; Wt 63.5 kg
[2021-12-09 09:58] LABS: BASOPHILS % (AUTO) 0.8 % (0.0-5.0); EOSINOPHILS % (AUTO) 10.7 % (0.0-8.0); HEMATOCRIT 38.4 % (36-48); LYMPHOCYTES % (AUTO) 40.4 % (21.0-51.0); MEAN CORPUSCULAR HEMOGLOBIN 29.4 pg (27.0-33.0); MEAN CORPUSCULAR HGB CONC 32.6 g/dL (32.0-36.0); MEAN CORPUSCULAR VOLUME 90.4 fL (79-99); MONOCYTES % (AUTO) 9.3 % (3.0-13.0); NEUTROPHILS % (AUTO) 38.5 % (40.0-77.0); PLATELET COUNT (AUTO) 317 K/uL (130-400); RED BLOOD CELL COUNT(AUTO) 4.25 MIL/uL (4.00-5.50); RED CELL DISTRIBUTION WIDTH 13.7 % (11.0-15.5); WHITE BLOOD COUNT (AUTO) 6.4 K/uL (4.8-10.8)
[2021-12-09 10:08] LABS: CREATININE 0.7 mg/dL (0.5-1.5); POTASSIUM 3.7 mmol/L (3.5-5.1)
[2021-12-09 10:12] LABS: ALBUMIN 3.6 g/dL (3.5-5.0); BILIRUBIN,TOTAL 0.3 mg/dL (0.2-1.0); TOTAL PROTEIN, SERUM 6.9 g/dL (6.0-8.3)
[2021-12-09 10:29] LABS: B-TYPE NATRIURETIC PEPTIDE 19 pg/mL (0-100)
[2021-12-09] MEDS ORDERED: BENZONATATE 100 MG CAPSULE PO PRN (10:30)
[2021-12-09] MEDS ORDERED: SOLU-MEDROL 125MG VIAL IVP ONE (10:30)
[2021-12-09] MEDS ORDERED: IPRATROPIUM/ALBUTEROL SULFATE 3 ML SOLUTION IH ONE (10:30)
[2021-12-09] MEDS ORDERED: BENZ-39 PO (12:29)
[2021-12-09] MEDS ORDERED: PRED20TA3 PO (12:29)
[2021-12-09 12:44] VITALS: BP 147/92
== END 2021-12-09 12:45 | disposition home or self-care (01) ==
LOC: EDH 09:08
DX: J20.9 Acute bronchitis, unspecified (principal); J32.9 Chronic sinusitis, unspecified; Z79.51 Long term (current) use of inhaled steroids; Z79.52 Long term (current) use of systemic steroids; Z79.899 Other long term (current) drug therapy; Z90.49 Acquired absence of other specified parts of digestive tract
CPT/HCPCS: 36415; 71046; 80053; 83880; 85025; 94640; 96374; 99284; J2930

== ENCOUNTER → 2022-01-03 | Outpatient (CLI) | payer BC, OTHER ==
[~2022-01-03] MED LIST changes: +BENZ-39 PO
== END | disposition home or self-care (01) ==
LOC: RAH 09:49
PROVIDERS: ATTEND Otolaryngology Plastic Surgery within the Head & Neck
DX: J01.90 Acute sinusitis, unspecified (principal)
CPT/HCPCS: 70486

== ENCOUNTER → 2022-01-29 | Outpatient (CLI) | payer BC, OTHER ==
[2022-01-31 08:58] LABS: HEMATOCRIT 44.3 % (36-48); LYMPHOCYTES % (AUTO) 40.4 % (21.0-51.0); MEAN CORPUSCULAR HEMOGLOBIN 29.6 pg (27.0-33.0); MEAN CORPUSCULAR HGB CONC 32.7 g/dL (32.0-36.0); MEAN CORPUSCULAR VOLUME 90.4 fL (79-99); MONOCYTES % (AUTO) 7.9 % (3.0-13.0); NEUTROPHILS % (AUTO) 36.5 % (40.0-77.0); PLATELET COUNT (AUTO) 401 K/uL (130-400); RED CELL DISTRIBUTION WIDTH 12.4 % (11.0-15.5); WHITE BLOOD COUNT (AUTO) 6.1 K/uL (4.8-10.8)
[2022-01-31 09:24] LABS: ALANINE AMINOTRANSFERASE 29 U/L (12-78); ASPARTATE AMINOTRANSFERASE 17 U/L (10-37); BILIRUBIN,TOTAL 0.4 mg/dL (0.2-1.0); CARBON DIOXIDE 28 mmol/L (21-32); CHLORIDE 103 mmol/L (101-111); CREATININE 0.8 mg/dL (0.5-1.5); GLOMERULAR FILTR. RATE CALC 80 mL/min (>60); GLUCOSE,RANDOM 96 mg/dL (70-105); POTASSIUM 4.2 mmol/L (3.5-5.1); SODIUM SERUM 139 mmol/L (136-145); TOTAL PROTEIN, SERUM 7.6 g/dL (6.0-8.3); UREA NITROGEN, BLOOD 15 mg/dL (7-18)
[2022-01-31 09:33] LABS: CRP QUANTITATIVE < 2.00 mg/L (0.00-9.0)
[2022-01-31 10:03] LABS: ERYTHROCYTE SEDIMENTATION RATE 9 MM/HR (0-30)
== END | disposition home or self-care (01) ==
LOC: LAB 07:55
PROVIDERS: ATTEND Internal Medicine
DX: Z79.899 Other long term (current) drug therapy (principal)
CPT/HCPCS: 36415; 80053; 85025; 85651; 86140

== ENCOUNTER → 2022-02-18 | Outpatient (CLI) | payer BC, OTHER | END | disposition home or self-care (01) | LOC: LAB 11:56 | PROVIDERS: ATTEND Internal Medicine | DX: Z86.19 Personal history of other infectious and parasitic diseases (principal) | CPT/HCPCS: 36415; 86606; 86612 ==

== ENCOUNTER → 2022-05-15 | Outpatient (CLI) | payer BC, OTHER | END | disposition home or self-care (01) | LOC: RAH 15:30 | PROVIDERS: ATTEND Internal Medicine | DX: M17.0 Bilateral primary osteoarthritis of knee (principal); M02.30 Reiter's disease, unspecified site; M06.4 Inflammatory polyarthropathy | CPT/HCPCS: 73620 ==

== ENCOUNTER → 2022-07-22 | Outpatient (CLI) | payer BC, OTHER ==
[2022-07-22 14:54] LABS: BASOPHILS % (AUTO) 0.4 % (0.0-5.0); EOSINOPHILS % (AUTO) 11.8 % (0.0-8.0); HEMATOCRIT 41.1 % (36-48); LYMPHOCYTES % (AUTO) 36.5 % (21.0-51.0); MEAN CORPUSCULAR HEMOGLOBIN 29.8 pg (27.0-33.0); MEAN CORPUSCULAR HGB CONC 33.1 g/dL (32.0-36.0); MEAN CORPUSCULAR VOLUME 89.9 fL (79-99); MONOCYTES % (AUTO) 6.1 % (3.0-13.0); PLATELET COUNT (AUTO) 295 K/uL (130-400); RED BLOOD CELL COUNT(AUTO) 4.57 MIL/uL (4.00-5.50); RED CELL DISTRIBUTION WIDTH 13.1 % (11.0-15.5); WHITE BLOOD COUNT (AUTO) 5.1 K/uL (4.8-10.8)
[2022-07-22 15:20] LABS: CARBON DIOXIDE 29 mmol/L (21-32); CHLORIDE 101 mmol/L (101-111); POTASSIUM 3.6 mmol/L (3.5-5.1); SODIUM SERUM 139 mmol/L (136-145)
[2022-07-22 15:57] LABS: ALANINE AMINOTRANSFERASE 31 U/L (12-78); ALBUMIN 4.2 g/dL (3.5-5.0); ASPARTATE AMINOTRANSFERASE 20 U/L (10-37); CREATININE 0.7 mg/dL (0.5-1.5); GLOMERULAR FILTR. RATE CALC 93 mL/min (>60); GLUCOSE,RANDOM 112 mg/dL (70-105); TOTAL PROTEIN, SERUM 7.8 g/dL (6.0-8.3); UREA NITROGEN, BLOOD 10 mg/dL (7-18)
[2022-07-22 16:02] LABS: CRP QUANTITATIVE < 2.00 mg/L (0.00-9.0); ERYTHROCYTE SEDIMENTATION RATE 6 MM/HR (0-30)
[2022-07-23 06:45] LABS: HEPATITIS B SURFACE ANTIGEN Non-Reactive (Nonreactive)
== END | disposition home or self-care (01) ==
LOC: LAB 11:14
PROVIDERS: ATTEND Internal Medicine
DX: L40.50 Arthropathic psoriasis, unspecified (principal); M02.30 Reiter's disease, unspecified site; Z79.899 Other long term (current) drug therapy
CPT/HCPCS: 36415; 80053; 85025; 85651; 86140; 86480; 86704; 87340

== ENCOUNTER → 2022-08-07 | Outpatient (CLI) | payer BC, OTHER | END | disposition home or self-care (01) | LOC: ICE 10:58 | PROVIDERS: ATTEND Hospitalist | DX: U07.1 COVID-19 (principal) | CPT/HCPCS: 87426 ==

== ENCOUNTER → 2022-08-13 | Outpatient (CLI) | payer BC, OTHER ==
[2022-08-13 08:53] LABS: BASOPHILS % (AUTO) 0.5 % (0.0-5.0); EOSINOPHILS % (AUTO) 5.6 % (0.0-8.0); HEMATOCRIT 41.9 % (36-48); LYMPHOCYTES % (AUTO) 35.5 % (21.0-51.0); MEAN CORPUSCULAR HEMOGLOBIN 29.3 pg (27.0-33.0); MEAN CORPUSCULAR HGB CONC 32.7 g/dL (32.0-36.0); MEAN CORPUSCULAR VOLUME 89.5 fL (79-99); MONOCYTES % (AUTO) 8.2 % (3.0-13.0); PLATELET COUNT (AUTO) 385 K/uL (130-400); RED BLOOD CELL COUNT(AUTO) 4.68 MIL/uL (4.00-5.50); RED CELL DISTRIBUTION WIDTH 12.9 % (11.0-15.5); WHITE BLOOD COUNT (AUTO) 6.3 K/uL (4.8-10.8)
== END | disposition home or self-care (01) ==
LOC: LAB 08-12 10:23
PROVIDERS: ATTEND Allergy & Immunology
DX: J45.40 Moderate persistent asthma, uncomplicated (principal)
CPT/HCPCS: 36415; 85025

== ENCOUNTER → 2022-09-22 | Outpatient (CLI) | payer BC, OTHER | END | disposition home or self-care (01) | LOC: RAH 08:54 | PROVIDERS: ATTEND Internal Medicine | DX: Z12.31 Encounter for screening mammogram for malignant neoplasm of breast (principal) | CPT/HCPCS: 77067 ==

== ENCOUNTER → 2023-03-13 | Outpatient (CLI) | payer BC, OTHER ==
[~2023-03-13] MED LIST changes: -GABA300S PO; +GABA300S3 PO
[2023-03-13 13:00] LABS: BASOPHILS % (AUTO) 0.3 % (0.0-5.0); EOSINOPHILS % (AUTO) 2.8 % (0.0-8.0); HEMATOCRIT 42.9 % (36-48); LYMPHOCYTES % (AUTO) 41.1 % (21.0-51.0); MEAN CORPUSCULAR HEMOGLOBIN 29.7 pg (27.0-33.0); MEAN CORPUSCULAR HGB CONC 32.4 g/dL (32.0-36.0); MEAN CORPUSCULAR VOLUME 91.7 fL (79-99); MONOCYTES % (AUTO) 5.3 % (3.0-13.0); NEUTROPHILS % (AUTO) 50.2 % (40.0-77.0); PLATELET COUNT (AUTO) 330 K/uL (130-400); RED BLOOD CELL COUNT(AUTO) 4.68 MIL/uL (4.00-5.50); RED CELL DISTRIBUTION WIDTH 13.1 % (11.0-15.5); WHITE BLOOD COUNT (AUTO) 6.4 K/uL (4.8-10.8)
[2023-03-13 13:23] LABS: ALANINE AMINOTRANSFERASE 28 U/L (12-78); ALBUMIN 4.1 g/dL (3.5-5.0); ASPARTATE AMINOTRANSFERASE 12 U/L (10-37); CARBON DIOXIDE 26 mmol/L (21-32); CHLORIDE 102 mmol/L (101-111); CHOLESTEROL 304 mg/dL (<200); CREATININE 0.7 mg/dL (0.5-1.5); GLOMERULAR FILTR. RATE CALC 103 mL/min (>90); GLUCOSE,RANDOM 94 mg/dL (70-105); HDL CHOLESTEROL 62 mg/dL (35-85); LDL DIRECT 181 mg/dL (0-99); POTASSIUM 4.3 mmol/L (3.5-5.1); SODIUM SERUM 139 mmol/L (136-145); THYROID STIMULATING HORMONE 0.52 uIU/mL (0.36-3.74); TOTAL PROTEIN, SERUM 7.5 g/dL (6.0-8.3); TRIGLYCERIDES 195 mg/dL (30-200); UREA NITROGEN, BLOOD 12 mg/dL (7-18)
[2023-03-13 13:24] LABS: CRP QUANTITATIVE < 2.00 mg/L (0.00-9.0)
[2023-03-13 14:07] LABS: ERYTHROCYTE SEDIMENTATION RATE 6 MM/HR (0-30)
== END | disposition home or self-care (01) ==
LOC: LAB 11:53
PROVIDERS: ATTEND Internal Medicine
DX: Z13.29 Encounter for screening for other suspected endocrine disorder (principal); Z00.00 Encounter for general adult medical examination without abnormal findings; Z79.899 Other long term (current) drug therapy; E78.2 Mixed hyperlipidemia
CPT/HCPCS: 36415; 80053; 80061; 84443; 85025; 85651; 86140

== ENCOUNTER → 2023-04-10 | Outpatient (CLI) | payer OTHER ==
[2023-04-15 12:13] LABS: B.BURGOR (LYME) IGG WB INTERP Negative (.); LYME IGG WB P18 AB Absent (.); LYME IGG WB P28 AB Absent (.); LYME IGG WB P30 AB Absent (.); LYME IGG WB P39 AB Absent (.); LYME IGG WB P41 AB Present (.); LYME IGG WB P45 AB Absent (.); LYME IGG WB P58 AB Absent (.); LYME IGG WB P66 AB Absent (.); LYME IGG WB P93 AB Absent (.); LYME IGM-WB INTERP Negative (.); LYME IGM-WB P23 AB Absent (.); LYME IGM-WB P39 AB Absent (.); LYME IGM-WB P41 AB Absent (.)
== END | disposition home or self-care (01) ==
LOC: LAB 10:29
PROVIDERS: ATTEND Internal Medicine
DX: R21 Rash and other nonspecific skin eruption (principal); W57.XXXA Bitten or stung by nonvenomous insect and other nonvenomous arthropods, initial encounter; Y93.89 Activity, other specified; Y92.89 Other specified places as the place of occurrence of the external cause; Y99.8 Other external cause status
CPT/HCPCS: 36415; 86617

== ENCOUNTER → 2024-01-08 | Outpatient (CLI) | payer OTHER | END | disposition home or self-care (01) | LOC: RAH 14:18 | PROVIDERS: ATTEND Internal Medicine | DX: M47.812 Spondylosis without myelopathy or radiculopathy, cervical region (principal) | CPT/HCPCS: 72050 ==

== ENCOUNTER → 2024-05-27 | Outpatient (CLI) | payer OTHER | END | disposition home or self-care (01) | LOC: RAH 09:21 | PROVIDERS: ATTEND Internal Medicine | DX: M50.122 Cervical disc disorder at C5-C6 level with radiculopathy (principal); M50.123 Cervical disc disorder at C6-C7 level with radiculopathy; M48.02 Spinal stenosis, cervical region | CPT/HCPCS: 72141 ==

== ENCOUNTER → 2025-02-10 | Outpatient (CLI) | payer OTHER ==
--- NOTE | 2025-02-10 13:02 | HMCIMG ---
MAMMO SCREENING IMPLANT HISTORY: Screening mammogram. COMPARISON: 02/03/2024 TECHNIQUE: Bilateral screening mammogram with CAD was performed with craniocaudal and mediolateral oblique projections. Additional fractures. Views were obtained. FINDINGS: There are scattered areas of fibroglandular density. Dystrophic calcifications are seen. There are bilateral breast implants. There is no evidence of a dominant mass, or suspicious microcalcification. There is no evidence of nipple retraction or skin thickening. IMPRESSION: 1. Stable mammogram. Patient was entered into a reminder system with a target due date for their next mammogram. BI-RADS: CATEGORY 2: BENIGN FINDINGS Recommend monthly self breast exam as well as annual clinical examination. A negative x-ray should not delay biopsy if a dominant or clinically suspicious mass is present, since 8-10% of cancers are not identified by mammography. Dense breasts particularly, may obscure an underlying neoplasm. Some of these may be detected clinically and therefore, clinical examination is an essential part of breast evaluation.
== END | disposition home or self-care (01) ==
LOC: RAH 11:00
PROVIDERS: ATTEND Internal Medicine
DX: Z12.31 Encounter for screening mammogram for malignant neoplasm of breast (principal); R92.323 Mammographic fibroglandular density, bilateral breasts
CPT/HCPCS: 77067

== ENCOUNTER → 2025-03-17 | Outpatient (CLI) | payer OTHER ==
--- NOTE | 2025-03-18 03:23 | HMCIMG ---
EXAM: CR Bilateral Hands, 4 views. CLINICAL HISTORY: Other chondrocalcinosis. COMPARISON: DX dated 05/15/2022. FINDINGS: No acute fracture or aggressive appearing osseous lesion. Mild osteopenia. Mild osteoarthritis, more pronounced around the bilateral first interphalangeal joints. Grossly unremarkable soft tissues. IMPRESSION: Mild osteopenia. Mild osteoarthritis, more pronounced around the bilateral first interphalangeal joints. No gross interval changes. /Linwood
== END | disposition home or self-care (01) ==
LOC: RAH 03-16 14:44
PROVIDERS: ATTEND Nurse Practitioner Family
DX: M19.041 Primary osteoarthritis, right hand (principal); M19.042 Primary osteoarthritis, left hand; M11.242 Other chondrocalcinosis, left hand; M11.241 Other chondrocalcinosis, right hand; M85.842 Other specified disorders of bone density and structure, left hand; M85.841 Other specified disorders of bone density and structure, right hand

== ENCOUNTER → 2025-08-08 | Outpatient (CLI) | payer OTHER ==
[~2025-08-08] MED LIST changes: -ALBU90AE IH; -ATOR20TA65 PO; -BENZ-39 PO; -BUDE10.2 IH; -BUPR-49 PO; -FLUT16H NASAL; -GABA300S3 PO; +GADOTERATE MEGLUMINE 10 MMOL/20 ML VIAL IV ONE; -LORA-575 PO; -MONT-39 PO; -OMEP40CA21 PO; -PRED20TA3 PO; -TIOT18CA3 IH
--- NOTE | 2025-08-09 02:46 | HMCIMG ---
STUDY MR right upper extremity without IV contrast, hand. HISTORY Chondrocalcinosis. TECHNIQUE Multisequence, multiplanar magnetic resonance images of the right hand were obtained without intravenous contrast. COMPARISON DX bilateral hands, 2 views each, 03/17/2025 09:25 EDT. FINDINGS Bones No acute fracture or aggressive appearing osseous lesion is identified. Joints Degenerative changes are present at the first carpometacarpal joint, with subchondral marrow edema, osteophytosis, and mild lateral subluxation. No significant joint effusion is seen. Remaining visualized joints are otherwise unremarkable. Cartilage Articular cartilage surfaces are preserved without focal full-thickness defect in the visualized joints. Ligaments Medial collateral, lateral collateral, radial collateral, and ulnar collateral ligaments are intact and unremarkable. Tendons Flexor and extensor tendons are intact and demonstrate normal signal without tear or tenosynovitis. Muscles Visualized intrinsic and extrinsic hand musculature demonstrate normal bulk and signal without edema or fatty atrophy. Soft tissues and others No soft tissue mass, fluid collection, or abnormal enhancement is identified. No additional significant abnormality is seen. IMPRESSION * Degenerative osteoarthritic change at the first carpometacarpal joint with subchondral marrow edema, osteophytosis, and mild lateral subluxation. * Otherwise unremarkable MRI of the right hand without evidence of acute osseous, tendon, ligamentous, or soft tissue abnormality. /Tyler
--- NOTE | 2025-08-09 08:18 | HMCIMG ---
CLINICAL INDICATION: Other chondrocalcinosis COMPARISON: None available TECHNIQUE: Bone densitometry is performed of the lumbar spine and left hip. FINDINGS: Total BMD of lumbar spine is 0.966 g/cm2 with a T-score of -0.7 and Z-score is 0.5. Total BMD of left hip is 1.024 g/cm2 with a T-score of 0.7 and Z-score is 1.5. FRAX SCORE: The 10 year fracture risk for a major osteoporotic fracture and hip fracture not reported T score at or above -1.0 IMPRESSION: 1. Normal lumbar spine and left hip 2. I would recommend follow-up in 2 years World Health Organization criteria for BMD interpretation classify patients as Normal (T-score at or above -1.0), Osteopenic (T-score between -1.0 and -2.5), or Osteoporotic (T-score at or below -2.5). FRAX SCORE: A. All treatment decisions require clinical judgment and consideration of individual patient factors, including patient preferences, comorbidities, previous drug use, risk factors not captured in the FRAX model (e.g., frailty, falls, vitamin D deficiency, increased bone turnover, interval significant decline in bone density) and possible [id number]-estimation of fracture risk by FRAX. B. In addition, the NOF Guide recommends that FDA-approved medical therapies be considered in postmenopausal women and men age greater than or equal to 50 years with a: i. Hip or vertebral (clinical or morphometric) fracture. ii. T-score of less than or equal to -2.5 at the spine or hip. iii. Ten-year fracture probability by FRAX of greater than or equal to 3% for hip fracture of greater than or equal to 20% for major osteoporotic fracture.
== END | disposition home or self-care (01) ==
LOC: RAH 09:20
PROVIDERS: ATTEND Internal Medicine Rheumatology
DX: M18.11 Unilateral primary osteoarthritis of first carpometacarpal joint, right hand (principal); M11.20 Other chondrocalcinosis, unspecified site; M81.0 Age-related osteoporosis without current pathological fracture; M19.041 Primary osteoarthritis, right hand; M25.441 Effusion, right hand; M25.741 Osteophyte, right hand; M79.641 Pain in right hand
CPT/HCPCS: 73220; 77080; A9575